=== PATIENT | female | born 1995 | race African-American/Black ===

== ENCOUNTER 2025-05-28 08:38 | Emergency (ER) | payer BC, SELFPAY ==
[2025-05-28 08:40] VITALS: BP 140/78
[2025-05-28 08:52] LABS: Hematocrit 37.4 % (37.0-47.0); Hemoglobin 12.5 g/dL (12.0-16.0); Mean Corp Hgb Conc. 33.4 g/dL (33.0-37.0); Mean Corpuscular Volume 88.4 fL (81.0-99.0); Nucleated Red Blood Cells % 0 %; Platelet Count 248 10^3/uL (130-400); Red Cell Dist. Width 13.9 % (11.5-14.5)
[2025-05-28 09:01] LABS: HCG, Serum Qualitative Screen Negative
[2025-05-28 09:05] LABS: ALT (SGPT) 18 U/L (0-35); AST (SGOT) 26 U/L (14-36); Albumin 4.4 g/dl (3.5-5.0); Alkaline Phosphatase 75 U/L (38-126); Blood Urea Nitrogen 10 mg/dl (7-17); Calcium 9.3 mg/dl (8.4-10.2); Carbon Dioxide 22 mmol/L (22-30); Chloride 108 mmol/L (98-107); Glucose 94 mg/dl (70-99); Lipase 254 U/L (23-300); Potassium 4.2 mmol/L (3.5-5.1); Sodium 138 mmol/L (135-145); Total Protein 7.6 g/dl (6.3-8.2); eGFR > 60.00
--- NOTE | 2025-05-28 09:38 | ED.GENMED ---
History of Present Illness
General
Chief Complaint: Abdominal Pain
Source: patient
Exam Limitations: none
Time Seen by Provider: 05/28/25 09:16
History of Present Illness
History of Present Illness:
29yoF with no significant past medical history presenting for evaluation of abdominal pain. She reports pain in her right lower abdomen that started when she woke up yesterday. Pain initially felt like a sore muscle and a dull pain. Her pain has
been constant and gradually worsening. Pain is now sharp in nature. Pain is worse with movement. She is also experiencing nausea but has not vomited. She is otherwise asymptomatic and denies any fevers, chills, diarrhea, constipation, urinary
symptoms, vaginal discharge, vaginal bleeding. Patient was seen at [facility] ED yesterday but no imaging was done due to long wait times. No prior abdominal surgeries. LMP 2 weeks ago.
Past History
Past History
ED Past Medical History: None
ED Past Surgical History: None
Social History
Tobacco: Non-smoker
Phy Exam
General Physical Exam
General Presentation: well appearing and no apparent distress
General age: appears stated age
General Skin: warm and dry
General Habitus: normal
General Mental: alert
ENT Exam
ENT Exam: normocephalic
Pulmonary Exam
Pulmonary Exam: no respiratory distress
Gastrointestinal Exam
Gastrointestinal Exam: soft, non distended and other (+Mild RLQ tenderness. Abdomen soft, non-distended. No rebound or guarding.)
Neurological Exam
Neurological Exam: alert
[place] Coma Scale
Eye Opening: Spontaneous
Verbal Response: Oriented
Motor Response: Obeys Commands
GCS Total Score: 15
Skin Exam
Skin Exam: normal color and warm/dry
Psychiatric Exam
Psychiatric Exam: normal mood/affect
Course
Orders/Labs/Results
Orders:
Orders
05/28/25 08:42
Test Result ONCE
05/28/25 08:45
Complete Blood Count/With Diff Urgent
Comprehensive Metabolic Panel Urgent
HCG, Serum Qualitative Screen Urgent
Lipase Urgent
05/28/25 09:28
CT Abd/pelvis W Iv Cont Urgent
Comment:
Reason For Exam: RLQ pain
0.9% Sodium Chloride 1000 ml [Nss] 1,000 ml IV BOLUS
Abnormal Lab Results
05/28/25
08:45
Chloride 108 H mmol/L
(98-107)
05/28/25 08:45
05/28/25 08:45
Vital Signs
Initial and Last Documented VS:
Initial Vital Signs
Temp Pulse Resp BP Pulse Ox
98.5 F 95 16 140/78 98
05/28/25 08:40 05/28/25 08:40 05/28/25 08:40 05/28/25 08:40 05/28/25 08:40
Last Documented Vital Signs
Temp Pulse Resp BP Pulse Ox
98.5 F 95 16 140/78 98
05/28/25 08:40 05/28/25 08:40 05/28/25 08:40 05/28/25 08:40 05/28/25 09:41
MDM/Problems Addressed
Differential Diagnosis Includes:
29yoF here with RLQ pain x 1 day. +Nausea. Otherwise asymptomatic. Patient mildly hypertensive with otherwise stable vitals. She is well-appearing and nontoxic. No signs of peritonitis on abdominal exam. Differential diagnosis includes:
Appendicitis, ovarian cyst, mesenteric adenitis, musculoskeletal, kidney stone
Initial ED plan: Labs obtained in triage which are unremarkable normal white count. hCG testing negative. Will proceed with CT abdomen. She declines analgesics.
*Pulse Oximetry
SaO2: 98
Oxygen Mode of Delivery: Room air
Patient hypoxic: no
*Critical Care Note
Total Time (30-74mins, 75-104mins- exclusive of procedures): Not Applicable
Update Note
Update Note:
Imaging shows small lymph nodes in the right lower quadrant mesentery which possibly represents mesenteric adenitis. Appendix is normal. No other acute findings on imaging. No indication for hospitalization. Supportive care discussed. She was
instructed to follow-up with her PCP and ED return precautions reviewed. Patient agreed with plan and she was discharged stable condition.
ED Attending Note
-
Portions of this chart may have been created with voice recognition software.� Occasional wrong word or��sound alike� substitutions may have occurred due to the inherent limitations of voice recognition software.
Discharge Plan
Departure
Patient Disposition: Home (Routine Discharge)
Date of Disposition: 05/28/25
Time of Disposition: 12:26
Patient with high blood pressure during this ER visit?: Yes
Discharge Problem:
Mesenteric adenitis
Instructions: Mesenteric Lymphadenitis (DC)
Referrals:
Leni Das MD [Family Provider, Internal Medicine]
Activity Restrictions/Additional Instructions:
Take Tylenol and ibuprofen as needed for pain. Apply heat to affected area.
Please follow-up with your family doctor next week. Return to the ER with any new or worsening symptoms including severe pain or fevers.
Interventions
Interventions:
*General Assessment Last Done: 05/28/25 09:18
*Neglect/Abuse Screening Last Done: 05/28/25 08:41
*ED COVID-19 Vaccine History Last Done: 05/28/25 09:18
*ED Influenza Vaccine History Last Done: 05/28/25 09:18
[facility] Risk Assessment Tool Last Done: 05/28/25 12:36
*Risk Screen - Suicide (C-SSRS) Last Done: 05/28/25 08:41
*Nursing Disposition Last Done: 05/28/25 12:36
AF-Wwuqxd-Kyruntfjpb Assessment Last Done: 05/28/25 09:18
Discharge Date and Time
Discharge Date/Time: 05/28/25 12:36
Print Language: ALGERIAN
[2025-05-28] MEDS: NSS 1000 IV (09:47)
--- NOTE | 2025-05-28 11:19 | EDRN ---
Patient is relaxing and aware we are waiting for CT to come back.
== END 2025-05-28 12:36 | disposition home or self-care (01) ==
LOC: EMR 08:38
PROVIDERS: EMERGENCY PHYSICIAN Emergency Medicine; FAMILY PHYSICIAN Internal Medicine
DX: I88.0 Nonspecific mesenteric lymphadenitis (principal)
CPT/HCPCS: 99284; 96360; 74177; 80053; 83690; 84703; 85025; Q9967

== ENCOUNTER → 2025-06-05 04:00 | Outpatient (REF) | payer BC, SELFPAY | LOC: DHSLP 04:00 | PROVIDERS: ATTENDING PHYSICIAN Internal Medicine | DX: G47.33 Obstructive sleep apnea (adult) (pediatric) (principal); R06.83 Snoring | CPT/HCPCS: 95800 ==